=== PATIENT | female | born 1935 | race Caucasian/White ===

== ENCOUNTER 2023-04-15 05:53 | Day surgery (SDC) | payer OTHER ==
[2023-04-13 13:09] LABS: BASOPHILS # (AUTO) 0.03 K/uL (0.00-0.20); BASOPHILS % (AUTO) 0.5 % (0.0-5.0); EOSINOPHILS # (AUTO) 0.12 K/uL (0.00-0.70); EOSINOPHILS % (AUTO) 2.1 % (0.0-8.0); HEMATOCRIT 41.4 % (36-48); IMMATURE GRANULOCYTE ABSOLUTE 0.02 K/uL (0-1); LYMPHOCYTES # (AUTO) 0.5 K/uL (1.0-4.8); LYMPHOCYTES % (AUTO) 7.8 % (21.0-51.0); MEAN CORPUSCULAR HEMOGLOBIN 31.1 pg (27.0-33.0); MEAN CORPUSCULAR HGB CONC 32.1 g/dL (32.0-36.0); MONOCYTES # (AUTO) 0.5 K/uL (0.1-1.0); MONOCYTES % (AUTO) 9.4 % (3.0-13.0); NEUTROPHILS # (AUTO) 4.6 K/uL (1.8-7.7); NEUTROPHILS % (AUTO) 79.9 % (40.0-77.0); PLATELET COUNT (AUTO) 201 K/uL (130-400); RED BLOOD CELL COUNT(AUTO) 4.27 MIL/uL (4.00-5.50); RED CELL DISTRIBUTION WIDTH 12.5 % (11.0-15.5); WHITE BLOOD COUNT (AUTO) 5.7 K/uL (4.8-10.8)
[2023-04-13 13:21] LABS: CREATININE 1.1 mg/dL (0.5-1.5)
[2023-04-13 13:24] LABS: INR 0.96 (0.85-1.15); PROTHROMBIN TIME 11.2 SEC (9.6-11.6)
[2023-04-13 13:26] LABS: PARTIAL THROMBOPLASTIN TIME 29.1 SEC (26.3-35.5)
[2023-04-13 13:36] LABS: B-TYPE NATRIURETIC PEPTIDE 294 pg/mL (0-100)
[2023-04-14 09:17] VITALS: BP 122/64; PULSE 54; RESP 16
[2023-04-15] VITALS (9 sets, daily range): BP systolic 107–132; BP diastolic 52–69; PULSE 55–63; RESP 15–18
[2023-04-15] MEDS ORDERED: 0.9%NACL 1000ML 1,000 ML IV ONE (06:43)
[2023-04-15] MEDS ORDERED: MIDAZOLAM HCL 1 MG/ML 2ML VIAL ONE (07:08)
[2023-04-15] MEDS ORDERED: LIDOCAINE HCL 1% MDV 50ML VIAL ONE (07:08)
[2023-04-15] MEDS ORDERED: FENTANYL CITRATE PF 50 MCG/1 ML 2ML VIAL ONE (07:08)
[2023-04-15] MEDS ORDERED: CEFAZOLIN SODIUM 1 GM VIAL ONE (07:08)
[2023-04-15] MEDS ORDERED: BUPIVACAINE/PF 0.25% 30ML VIAL IJ ONE (07:09)
[2023-04-15] MEDS ORDERED: LEVO88CA4 PO (07:18)
[2023-04-15] MEDS ORDERED: ALEN70TA80 PO (07:18)
[2023-04-15] MEDS ORDERED: SOTA80TA PO (07:18)
[2023-04-15] MEDS ORDERED: RIVA15TA PO (07:18)
[2023-04-15] MEDS ORDERED: ACET325C6 PO (07:18)
[2023-04-15] MEDS ORDERED: ONDANSETRON 4MG INJ IV PRN (08:30)
== END 2023-04-15 13:15 | disposition home or self-care (01) ==
LOC: DAH 05:53
PROVIDERS: ATTEND Internal Medicine Interventional Cardiology
DX: Z45.010 Encounter for checking and testing of cardiac pacemaker pulse generator [battery] (principal); I49.5 Sick sinus syndrome; I48.11 Longstanding persistent atrial fibrillation; I42.8 Other cardiomyopathies; I44.30 Unspecified atrioventricular block; I11.0 Hypertensive heart disease with heart failure; I50.22 Chronic systolic (congestive) heart failure; I44.7 Left bundle-branch block, unspecified; E66.01 Morbid (severe) obesity due to excess calories; E78.2 Mixed hyperlipidemia; G60.8 Other hereditary and idiopathic neuropathies; M79.609 Pain in unspecified limb; Z79.01 Long term (current) use of anticoagulants; Z79.899 Other long term (current) drug therapy; Z68.26 Body mass index [BMI] 26.0-26.9, adult; Z88.8 Allergy status to other drugs, medicaments and biological substances; Z88.3 Allergy status to other anti-infective agents
CPT/HCPCS: 80048; 83880 ×2; 85025; 85610; 85730; 36415 ×2; 71045 ×2; 93005; 33228; C1785; J3010; J0690; J7030; J3490 ×2; J2250; A4215; A4335; A4222; A4221; A4663; A4216; A4223 ×3; A4554; A4606; 99156; 99157